=== PATIENT | male | born 1985 | race Two or more races ===

== ENCOUNTER 2016-07-29 13:56 | Emergency (ER) | payer BC, MEDICAID ==
[~2016-07-29] VITALS: Ht 177.8 cm; Wt 104.3 kg
[2016-07-29 15:00] VITALS: BP 150/89
[2016-07-29] MEDS ORDERED: KETOROLAC TROMETH 60MG/2ML VIAL IM ONE (16:30)
== END 2016-07-29 17:25 | disposition home or self-care (01) ==
LOC: ER 14:09
DX: R51 Headache (principal); S39.012D Strain of muscle, fascia and tendon of lower back, subsequent encounter; S00.83XD Contusion of other part of head, subsequent encounter
CPT/HCPCS: 72100; 96372; 99284; J1885

== ENCOUNTER 2017-12-02 13:43 | Emergency (ER) | payer BC ==
[~2017-12-02] VITALS: Ht 177.8 cm; Wt 104.3 kg
[2017-12-02 14:09] LABS: Basophils # (auto) 0 uL; Basophils % (auto) 0.2 % (0.0-2.0); Eosinophils # (auto) 0 uL; Eosinophils % (auto) 0.2 % (0.0-7.0); Hematocrit 54.7 % (41.0-53.0); Lymphocytes # (auto) 0.7 uL; Lymphocytes % (auto) 7.1 % (10.0-50.0); Mean Corpuscular Hemoglobin 30.8 pg (28.0-32.0); Mean Corpuscular Hgb Conc. 34.7 g/dL (32.0-36.0); Mean Corpuscular Volume 88.8 fL (80.0-100.0); Monocytes # (auto) 0.7 uL; Monocytes % (auto) 6.8 % (0.0-12.0); Neutrophils # (auto) 8.7 uL; Neutrophils % (auto) 85.7 % (37.0-80.0); Nucleated Red Blood Cells % 0.1 %; Platelet Count (auto) 246 10^3/uL (140-450); Red Blood Cells 6.16 10^6/uL (4.5-5.90); Red Cell Distribution Width 13.3 % (11.8-14.3); White Blood Cell 10.2 10^3/uL (4.4-10.8)
[2017-12-02 14:20] LABS: Albumin 4.4 g/dL (3.4-5.0); Calcium 8.9 mg/dL (8.5-10.1); Potassium 3.4 mmol/L (3.5-5.1)
[2017-12-02 14:23] LABS: Bilirubin, Total 1.1 mg/dL (0.2-1.0); Total Protein 8.8 g/dL (6.4-8.2)
[2017-12-02] MEDS: SODIUM CHLORIDE 0.9% 1,000 ML IV ONE ×2 (16:36→16:45)
[2017-12-02] MEDS ORDERED: SODIUM CHLORIDE 0.9% 2,000 ML IV ONE (16:45)
[2017-12-02] MEDS ORDERED: metroNIDAZOLE 500 MG TAB PO ONE (17:00)
[2017-12-02] MEDS ORDERED: cefTRIAXone 1GM/10ml IVPUSH 10 ML IV ONE (17:00)
[2017-12-02] MEDS ORDERED: ONDANSETRON HCL 4 MG/2 ML VIAL IV ONE (17:00)
[2017-12-02 18:32] VITALS: BP 124/79
== END 2017-12-02 18:50 | disposition home or self-care (01) ==
LOC: ER 13:43
DX: T62.91XA Toxic effect of unspecified noxious substance eaten as food, accidental (unintentional), initial encounter (principal); K52.9 Noninfective gastroenteritis and colitis, unspecified; J45.909 Unspecified asthma, uncomplicated; Y92.89 Other specified places as the place of occurrence of the external cause
CPT/HCPCS: 36415; 80053; 85025; 96361; 96374; 96375; 99285; J2405; J7030

== ENCOUNTER 2018-09-10 10:13 | Emergency (ER) | payer BC, OTHER ==
[~2018-09-10] VITALS: Ht 177.8 cm; Wt 108.9 kg
[2018-09-10 11:26] VITALS: BP 156/95
[2018-09-10] MEDS ORDERED: LIDOCAINE VISCOUS 2% 15ML UD PO ONE (11:45)
[2018-09-10] MEDS ORDERED: ALBUTEROL SULF 2.5 MG/0.5ML(0.5%) NEB SOLN NEB ONE (13:00)
[2018-09-10] MEDS ORDERED: IPRATROPIUM BROM 0.5 MG/2.5ML INH SOL NEB ONE (13:00)
== END 2018-09-10 13:46 | disposition home or self-care (01) ==
LOC: ER 10:13
DX: R06.02 Shortness of breath (principal); J02.9 Acute pharyngitis, unspecified; H10.33 Unspecified acute conjunctivitis, bilateral; J45.909 Unspecified asthma, uncomplicated
CPT/HCPCS: 71046; 94640; 99283; J7611; J7644

== ENCOUNTER 2024-07-08 16:20 | Emergency (ER) | payer OTHER ==
[~2024-07-08] VITALS: Ht 180.3 cm; Wt 120.2 kg
--- NOTE | 2024-07-08 17:22 | ED.PDOC ---
History of Present Illness HPI Comments 38 y/o M, with a Hx of asthma and obesity, presents with c/o left elbow pain and swelling, with associated limited range of motion, today. Patient endorses on sudden and unprovoked of symptoms, earlier today, with no prior Hx of in the past. He comments on being unable to fully extend or flex his left arm secondary to pain. Patient reports no additional relevant or pertinent Hx, such as recent injuries or strenuous activities. He denies having any weakness, numbness, tingling, fever, chills, or other associated symptoms or modifiers at this time. Chief Complaint: Upper Extremity Time Seen by MD: 16:30 Primary Care Provider: KEHINDE Villa Notes: Nurses Notes, Medications, Allergies Allergies: Coded Allergies: NO KNOWN ALLERGIES (Unverified , 07/29/16) Information Source: Patient Mode of Arrival: Ambulatory Severity: Moderate Timing: Hours Duration: Since onset Prehospital treatment: None Past Medical History PAST MEDICAL HISTORY: Asthma Past Medical History (Other): obesity Surgical History: Denies all surgeries Family History Family History: Unknown Social History Smoker: Non-Smoker Alcohol: Occasionally Drugs: Denies Drug Use Lives In: Home Constitutional: denies: chills, diaphoresis, fatigue, fever, malaise, sweats, weakness, others EENTM: denies: blurred vision, double vision, ear bleeding, ear discharge, ear drainage, ear pain, ear ringing, eye pain, eye redness, hearing loss, mouth pain, mouth swelling, nasal discharge, nose bleeding, nose congestion, nose pain, photophobia, tearing, throat pain, throat swelling, voice changes, others Respiratory: denies: cough, hemoptysis, orthopnea, SOB at rest, shortness of breath, SOB with excertion, stridor, wheezing, others Cardiovascular: denies: chest pain, dizzy spells, diaphoresis, Dyspnea on exertion, edema, irregular heart beat, left arm pain, lightheadedness, palpitations, PND, syncope, others Genitourinary: denies: burning, dysuria, flank pain, frequency, hematuria, incontinence, penile discharge, penile sore, pain, testicle pain, testicle swelling, urgency, others Neurological: denies: dizziness, fainting, headache, left sided numbness, left sided weakness, numbness, paresthesia, pre-existing deficit, right sided numbness, right sided weakness, seizure, speech problems, tingling, tremors, weakness, others Musculoskeletal: reports: others (left elbow pain and swelling, with associated limited range of motion ) Physical Exam General Appearance: No Apparent Distress, Obese HEENT: Normal ENT Inspection, Pharynx Normal, TMs Normal Neck: Full Range of Motion, Non-Tender, Normal, Normal Inspection Respiratory: Chest Non-Tender, Lungs Clear, No Accessory Muscle Use, No Respiratory Distress, Normal Breath Sounds Cardiovascular: No Edema, No JVD, No Murmur, No Gallop, Normal Peripheral Pulses, Regular Rate/Rhythm Breast Exam: Deferred Gastrointestinal: No Organomegaly, Non Tender, No Pulsatile Mass, Normal Bowel Sounds, Soft Genitalia: Deferred Pelvic: Deferred Rectal: Deferred Extremities: Decreased range of motion (left elbow, cannot completey extend or flex extremity), No calf tenderness, Normal capillary refill, No pedal edema, Swelling (left elbow), Tender (left elbow ) Musculoskeletal : Apperance: Normal Neurologic: Alert, electronic development technician II-XII nml as Tested, No Motor Deficits, Normal Affect, Normal Mood, No Sensory Deficits Cerebellar Function: Normal Reflexes: Normal Skin: Dry, Normal Color, Warm Lymphatic: No Adenopathy Was a procedure done? Was a procedure done?: No Differential Dx Considerations may include: sprain, muscle spasm, contusion X-Ray, Labs, Meds, VS Vital Signs Date Time Temp Pulse Resp B/P (MAP) Pulse Ox O2 Delivery O2 Flow Rate FiO2 07/08/24 16:42 97.1 71 18 167/97 (120) 96 X-Ray, Labs, Meds, VS Comment Imaging: X-rays and CT scans were reviewed and interpreted by this provider, imaging shows no fractures and no pathological disease. Pending radiology review. Laboratory: Labs reviewed and interpreted by this provider. No significant abnormalities noted. Patient has prior medical visits reviewed. Med reconciliation performed Vital signs reviewed Time of 1ST Reevaluation: 17:00 Reevaluation 1ST: Unchanged Patient Education/Counseling: Diagnosis, Treatment, Need For Follow Up (Patient advised to follow-up in the emergency room in the next 24 to 48 hours if symptoms do not improve. Advised follow-up with PCP in the next 3 to 5 days. Patient verbalized understanding. ) Family Education/Counseling: No Family Present Departure 1 Departure Time of Disposition: 18:14 Impression: Primary Impression: Bursitis of both elbows Qualified Codes: M70.21 - Olecranon bursitis, right elbow; M70.22 - Olecranon bursitis, left elbow Disposition: 01 HOME / SELF CARE / HOMELESS Condition: Fair e-Prescriptions Ibuprofen Micronized (Ibuprofen) 800 Mg Tab 800 MG PO TID PRN, #60 TAB Prov: LESLY FOSTER 07/08/24 Discharged With: Self Critical Care Note Critical Care Time?: No Stability Stability form required: No Heart Score Heart Score: Heart Score Response (Comments) Value History N/A 0 EKG N/A 0 Age N/A 0 Risk Factors N/A 0 Troponin N/A 0 Total 0 I personally scribed for LESLY FOSTER ([email or web address]) on 07/08/24 at 17:21. Electronically submitted by Dimas Casillas ([email or web address]). LESLY FOSTER Jul 08, 2024 17:21
[2024-07-08] MEDS ORDERED: IBUP-1455 PO (18:15)
[2024-07-08] MEDS ORDERED: ALBU108A5 IN (18:27)
[2024-07-08 18:50] VITALS: BP 153/90; PULSE 69; RESP 14; TEMP 98.2; O2SAT 94
== END 2024-07-08 18:54 | disposition home or self-care (01) ==
LOC: ER 16:20
DX: M70.32 Other bursitis of elbow, left elbow (principal); M70.31 Other bursitis of elbow, right elbow; E66.9 Obesity, unspecified; J45.909 Unspecified asthma, uncomplicated; Y93.89 Activity, other specified